=== PATIENT | female | born 1945 | race Caucasian/White ===

== ENCOUNTER → 2016-09-11 | Outpatient (CLI) | payer OTHER | LOC: BHFA 09:15 | PROVIDERS: ATTEND Internal Medicine Interventional Cardiology | DX: R00.2 Palpitations (principal); I45.10 Unspecified right bundle-branch block ==

== ENCOUNTER → 2016-09-24 | Outpatient (CLI) | payer OTHER, MEDICARE | LOC: BHFA 14:45 | PROVIDERS: ATTEND Internal Medicine Cardiovascular Disease | DX: R00.2 Palpitations (principal) ==

== ENCOUNTER → 2016-11-28 | Outpatient (CLI) | payer OTHER, MEDICARE | LOC: BHFA 11:00 | PROVIDERS: ATTEND Internal Medicine Cardiovascular Disease | DX: I47.2 Ventricular tachycardia (principal) ==

== ENCOUNTER → 2016-12-27 | Outpatient (CLI) | payer OTHER, MEDICARE ==
[~2016-12-27] MED LIST: GADOBUTROL 10 ML VIAL IVP ONE
[2016-12-27 09:53] LABS: CREATININE 0.8 mg/dL (0.6-1.0); GLOMERULAR FILTRATION RATE > 60
== END ==
LOC: FIMAGING 08:16
PROVIDERS: ATTEND Internal Medicine Cardiovascular Disease
DX: I47.2 Ventricular tachycardia (principal)
CPT/HCPCS: 75561; A9585

== ENCOUNTER → 2018-04-22 | Outpatient (CLI) | payer OTHER, MEDICARE | LOC: BHFA 13:45 | PROVIDERS: ATTEND Nurse Practitioner Adult Health | DX: I47.2 Ventricular tachycardia (principal); R00.2 Palpitations ==

== ENCOUNTER → 2018-08-25 | Outpatient (CLI) | payer OTHER, MEDICARE | LOC: BMCIMAGING 16:20 | PROVIDERS: ATTEND Family Medicine | DX: S69.92XA Unspecified injury of left wrist, hand and finger(s), initial encounter (principal) ==